=== PATIENT | male | born 1975 | race Caucasian/White ===

== ENCOUNTER → 2020-09-26 | Outpatient (CLI) | payer BC ==
[~2020-09-26] MED LIST: FLUOXETINE HCL20 M1 PO; LISINOPRIL20 MG PO; OMEPRAZOLE 20 M20 M1 PO; ONE-DAILY MULT1 EAC1 PO; PROBIOTIC1 EAC7 PO; VITAMIN D350 MCG PO; WELLBUTRIN SR150 MG PO
== END ==
LOC: LAB 11:58
PROVIDERS: ATTEND Ophthalmology
DX: Z01.812 Encounter for preprocedural laboratory examination (principal); Z20.828 Contact with and (suspected) exposure to other viral communicable diseases

== ENCOUNTER 2020-09-29 06:00 | Day surgery (SDC) | payer BC ==
[~2020-09-29] VITALS: Ht 185.4 cm; Wt 232.2 kg
[2020-09-29 07:52] VITALS: BP 160/89
--- NOTE | 2020-10-03 06:17 | O ---
[facility] [place] [address] OPERATIVE REPORT Name: KAMRYN STEELE Room #: DEP [facility] M.R.#: [id number] Admission: 09/29/20 Attend Phys: Ronald Melara MD Discharge: 09/29/20 Date of : 79 Report #: [id number] THIS REPORT FOR: cc: Navin Lewis Gregg R. DO White, William L. MD ~ DATE OF SERVICE: 09/29/2020 PREOPERATIVE DIAGNOSIS: Lesion of right lower lid. POSTOPERATIVE DIAGNOSIS: Lesion of right lower lid. PROCEDURE: Excision of lesion of right lower lid with myocutaneous flap repair of defect. SURGEON: Ronald Melara MD. WIRER HELPER: None. ANESTHESIA: MAC. COMPLICATIONS: None. INDICATIONS FOR SURGERY: This morbidly obese 45-year-old gentleman presents with a recurrent multicystic medial right lower lid lesion that appears to be a sudoriferous inclusion cyst. The lesion is large enough that it could not be safely excised in the office, so he presents today for excision in the operating room with supplemental IV sedation and repair of that ensuing defect. Informed consent was obtained to include but not limited to the potential risk for loss of vision, bleeding, infection, failure to improve the problem, and the potential need for further surgery or treatment, which is increased in this scenario because the risk of recurrence of this specific type of lesion. DESCRIPTION OF PROCEDURE: The patient was taken to the operating room where 2% Xylocaine with epinephrine mixed with equal parts of 0.75 Marcaine with Wydase was administered transcutaneously and transconjunctivally to the right lower lid, the right medial canthus, and the right cheek. The patient was subsequently prepped and draped in the usual sterile fashion. A subciliary incision was then made with a Romel scissor following which relatively brisk bleeding ensued, which occurred throughout the entire case. Coagulation was a challenge from the very onset. The lesion was identified and dissected out 360 degrees from the orbicularis muscle and the underlying tarsal plate. The lacrimal system and the dissection nasally was kept out of the dissection purposefully. The lesion was excised in 2 parts. Hemostasis was achieved in the field with diligent pinpoint monopolar cautery, which required multiple [facility] [address] [place] [address] OPERATIVE REPORT Name: IVETTEKAMRYN M Room #: DEP [facility] M..#: [id number] Admission: 09/29/20 Attend Phys: Ronald Melara MD Discharge: 09/29/20 Date of : 79 Report #: [id number] avenues of approach to achieve. Once hemostasis was achieved, a myocutaneous flap was then developed inferolaterally to be rotated superomedially. Hemostasis was achieved once more. The flap was then advanced and secured with multiple interrupted 6-0 plain gut sutures orienting the flap parallel to relaxed skin tension line. The wound was then cleaned and dressed with erythromycin ophthalmic ointment. The patient subsequently transported to the recovery area having tolerated the procedure well with no anesthetic or operative complications being noted. <ELECTRONICALLY SIGNED> By: Ronald Melara MD 10/03/2017 1 0833 Ronald Melara MD /nt
--- NOTE | 2020-10-04 17:09 | PATH ---
[facility] [address] [place] [address] PATHOLOGY RPT PROCEDURE Name: DANNIE MARY Room #: DEP [facility] M.R.#: [id number] Admission: 09/29/20 Date of : 79 Discharge: 09/29/20 Report #: [id number] Path Case #: [id number] [facility] Accession Number: [id number] . 01 Material submitted: . lid - RIGHT LOWER LID LESION. Modifiers: right, lower . 02 Diagnosis: Skin, right lower lid lesion, excision: - Eccrine hidrocystoma. . (IUV:mml; 10/04/2020) [facility] 10/04/2020 1309 Local . 02 Electronically signed: . Hodan Rodriguez MD, Pathologist NPI- [id number] . 01 Gross description: . The specimen is received in formalin, labeled "Dannie Mary, right lower lid lesion". Received are two tag-like segments of rodriguez-brown skin measuring 0.5 x 0.4 x 0.1 and 0.5 x 0.5 x 0.3 cm in greatest dimensions. The surgical margins are inked and each segment is bisected. The specimen is submitted entirely in cassette A1. (CAA; 10/03/2020) QAC/QA 10/03/2020 1607 Local . 02 Pathologist provided ICD-10: D23.112 . 02 CPT . 644772 Specimen Comment: A courtesy copy of this report has been sent to [phone] Specimen Comment: Report sent to Performed at: [address], [place] [id number] MD Lai Desir MD Phone: [phone] Performed at: [address] [id number] MD Hodan Rodriguez MD Phone: [phone]
== END 2020-09-29 09:15 | disposition home or self-care (01) ==
LOC: OR 06:00 → TBA 06:00 → OR 09:15
PROVIDERS: ATTEND Ophthalmology
DX: D23.112 Other benign neoplasm of skin of right lower eyelid, including canthus (principal); I10 Essential (primary) hypertension; F32.9 Major depressive disorder, single episode, unspecified; F41.9 Anxiety disorder, unspecified; K21.9 Gastro-esophageal reflux disease without esophagitis; Z98.890 Other specified postprocedural states; Z79.899 Other long term (current) drug therapy; Z87.891 Personal history of nicotine dependence
CPT/HCPCS: 50010; 50101; 50386; 50398; 51636; 56531; 62110; 62850; 70005